=== PATIENT | male | born 1945 | race Two or more races ===

== ENCOUNTER → 2020-03-21 | Outpatient (CLI) | payer OTHER ==
[~2020-03-21] MED LIST: ASA81 MG PO; HUM IM; LANTUS IM; MAXFE PO; NEURONTIN300 MG PO; NEXIUM2.5 MG PO; PERCOCET 5/3251 TAB PO; POLY119PG PO; TAMS0.4C PO; VASOTEC5 MG PO; ZOCOR40 MG PO; [UNRECOGNIZED DRUG - OTHER]
== END | disposition home or self-care (01) ==
LOC: RAD 13:22
DX: R07.89 Other chest pain (principal)